=== PATIENT | female | born 1990 | race Caucasian/White ===

== ENCOUNTER 2023-04-12 00:35 | Emergency (ER) | payer MEDICAID, SELFPAY ==
[2023-04-12 00:45] VITALS: BP 129/93; PULSE 72; RESP 16; TEMP 37.2; O2SAT 98; BMI 22.5
--- NOTE | 2023-04-12 01:49 | ED.DENTAL1 ---
HPI - Dental/Oral General Chief complaint: Dental/Oral Time Seen by Provider: 04/12/23 01:37 Source: patient Source comment: patient Mode of arrival: walk-in Limitations: no limitations History of Present Illness HPI Narrative: patient presents with broken tooth in the right lower jaw that has been carious for a long time - but she has been afraid to see a dentist so she has let it go . She developed pain in that area last week and then the right jaw became swollen and very painful. Nothing taken for the pain prior to arrival. She has an appointment with the dentist in the morning. She is anxious and crying and asking if she is going to . Related Data Allergies Allergy/AdvReac Type Severity Reaction Status Date / Time No Known Drug Allergies [facility] 04[facility]12[facility]23 00[facility] Social History Smoking status: Current every day smoker Exam Narrative Exam Narrative: General: The patient is comfortable, alert and oriented x3, well appearing, non toxic but emotional and crying. Head: Atraumatic and normocephalic scalpl. There is swelling of the right jaw. No facial erythema or warmth. Eyes: Normal conjunctiva ENT: The oropharynx is normal. No pharyngeal erythema, uvular edema, tonsillar exudates, asymmetry or trismus. Uvula is midline. Mouth is normal to inspection with the exception of a pain on percussion of the tooth #31 which is cracked and tooth #32 which is completelty broken off exposing a carious root. There is no evidence of abscess formation. Floor of the mouth is soft. No tenderness in the submental or submandibular space. No tongue elevation or deviation. The patient has no evidence of periapical abscess, gingivitis or other acute pathology. Airway is patent. Neck: The neck demonstrates normal range of motion. No meningeals signs are present. No stridor. No masses or lymphandenopathy noted. Respiratory: No acute distress, lungs are clear to auscultation, no wheezing, rhonchi, or rales noted. No stridor or retractions are noted. Cardiovascular: Regular rate and rhythm Skin: The skin exam shows no evidence of rashes Neuro: Alert and oriented x4, normal speech Lymphatic: No cervical lymphadenopathy Constitutional Vital Signs - 24 hr 04/12/23 00:45 Temperature 98.9 F Pulse Rate [Monitor] 72 Respiratory Rate 16 Blood Pressure [Left Arm] 129/93 H Pulse Oximetry 98 Oxygen Delivery Method Room Air Course Vital Signs Vital signs: Vital Signs Temperature 98.9 F 04/12/23 00:45 Pulse Rate 72 04/12/23 00:45 Respiratory Rate 16 04/12/23 00:45 Blood Pressure 129/93 H 04/12/23 00:45 Pulse Oximetry 98 04/12/23 00:45 Oxygen Delivery Method Room Air 04/12/23 00:45 Temperature 98.9 F 04/12/23 00:45 Pulse Rate 72 04/12/23 00:45 Respiratory Rate 16 04/12/23 00:45 Blood Pressure 129/93 H 04/12/23 00:45 Pulse Oximetry 98 04/12/23 00:45 Oxygen Delivery Method Room Air 04/12/23 00:45 MDM - Dental/Oral MDM Narrative Medical decision making narrative: patient has dental caries and fractures and needs to see a dentist. We gave her Clindamycin orally and dental anesthetic paste for the pain. She was prescribed additional clindamycin. She will need to see the dentist for follow up. Discharge Plan Discharge Chief Complaint: Dental/Oral Clinical Impression: Dental caries, Fracture of tooth Patient Disposition: Home, Self-Care Time of Disposition Decision: 01:57 Instructions: Toothache (ED) Stand Alone Forms: Portal Instructions Referrals: Physician,Non-Staff, MD [Primary Care Provider] - 1 week
[2023-04-12] MEDS: CLINDAMYCIN HCL 150 MG CAPSULE 300 MG PO (01:54)
[2023-04-12] MEDS: BENZOCAINE 30 ML, lidocaine HCL 15 ML MM (01:54)
[2023-04-12 02:05] VITALS: BP 138/80; PULSE 66; RESP 16; O2SAT 98
== END 2023-04-12 02:06 | disposition home or self-care (01) ==
PROVIDERS: Emergency Provider Emergency Medicine
DX: K02.9 Dental caries, unspecified (principal); S02.5XXA Fracture of tooth (traumatic), initial encounter for closed fracture; X58.XXXA Exposure to other specified factors, initial encounter; F17.210 Nicotine dependence, cigarettes, uncomplicated
CPT/HCPCS: 99283